=== PATIENT | male | born 1950 | race Caucasian/White ===

== ENCOUNTER 2021-07-27 06:43 | Inpatient (IN) | payer MEDICARE, OTHER ==
[~2021-07-27] VITALS: Ht 165.1 cm; Wt 69.1 kg
[2021-07-27] MEDS ORDERED: ACETAMINOPHEN 500 MG TABLET PO ONE (07:15)
[2021-07-27] MEDS ORDERED: MethylPREDNISolone SOD SUCC 125 MG/2 ML VIAL IVP ONE (07:15)
[2021-07-27] MEDS ORDERED: ALBUTEROL SULFATE 5 MG/ML 20 ML NEB SOLN [BULK] NEB ONE (07:15)
[2021-07-27] MEDS ORDERED: IPRATROPIUM BROMIDE 0.5 MG/2.5 ML NEB SOLUTION NEB ONE (07:15)
[2021-07-27] MEDS ORDERED: CALC-1085 PO (07:19)
[2021-07-27] MEDS ORDERED: ASPI-1450 PO (07:19)
[2021-07-27] MEDS ORDERED: TIOT4MIS3 PUFF (07:19)
[2021-07-27] MEDS ORDERED: FAMO20 PO (07:19)
[2021-07-27] MEDS ORDERED: LOSA50TA37 PO (07:19)
[2021-07-27] MEDS ORDERED: ROFL500T PO (07:19)
[2021-07-27] MEDS ORDERED: NAPR-1197 PO (07:19)
[2021-07-27] MEDS ORDERED: ATOR40TA28 PO (07:19)
[2021-07-27] MEDS ORDERED: FOLI-130 PO (07:19)
[2021-07-27] MEDS ORDERED: BACL10TA PO (07:19)
[2021-07-27 07:42] LABS: BASOPHILS % (AUTO) 0.2 % (0.0-2.0); EOSINOPHILS % (AUTO) 0 % (1.0-6.0); HEMATOCRIT 27.7 % (41-53); HEMOGLOBIN 8.9 g/dL (13.5-17.5); LYMPHOCYTES # (AUTO) 0.3 K/uL (1.0-4.8); LYMPHOCYTES % (AUTO) 4.8 % (22.0-44.0); MEAN CORPUSCULAR HEMOGLOBIN 28.2 pg (26.0-34.0); MEAN CORPUSCULAR HGB CONC 32.2 G/dL (31.0-37.0); MEAN CORPUSCULAR VOLUME 88 fL (80-100); MONOCYTES # (AUTO) 0.8 K/uL (0.1-1.0); NEUTROPHILS # (AUTO) 5.3 K/uL (1.8-7.7); PLATELET COUNT (AUTO) 678 K/uL (150-450); RED BLOOD CELL COUNT(AUTO) 3.17 MIL/uL (4.50-5.90); RED CELL DISTRIBUTION WIDTH 19.6 % (11.5-14.5)
[2021-07-27] MEDS ORDERED: AZITHROMYCIN 500 MG/NS 250 ML IV ONE (07:45)
[2021-07-27] MEDS ORDERED: CefTRIAXone 1 GM/DEXTROSE 50 ML IV ONE (07:45)
[2021-07-27] MEDS ORDERED: 0.9% SODIUM CHLORIDE 5 ML NEB SOLUTION NEB ONE (07:50)
[2021-07-27 07:52] LABS: ANION GAP 12 mmol/L (8-16); CARBON DIOXIDE 26 mmol/L (22-29); CHLORIDE 102 mmol/L (98-107); CREATININE 0.78 mg/dL (0.60-1.30); GLOMERULAR FILTR. RATE CALC > 60 mL/min (>60); GLUCOSE,RANDOM 146 mg/dL (70-110); POTASSIUM 3.6 mmol/L (3.5-5.1); SODIUM SERUM 140 mmol/L (136-145); UREA NITROGEN, BLOOD 12 mg/dL (7-18)
[2021-07-27 07:58] LABS: ALANINE AMINOTRANSFERASE 24 U/L (12-78); ALBUMIN 2.8 g/dL (3.4-5.0); ALKALINE PHOSPHATASE 102 U/L (46-116); ASPARTATE AMINOTRANSFERASE 29 U/L (15-37); BILIRUBIN,TOTAL 0.3 mg/dL (0.1-1.0); TOTAL PROTEIN, SERUM 7.2 g/dL (6.4-8.2)
[2021-07-27 07:59] LABS: B-TYPE NATRIURETIC PEPTIDE 225 pg/mL (0-100)
[2021-07-27] MEDS ORDERED: ONDANSETRON HCL 4 MG/2 ML VIAL IVP PRN ×2 (08:15→09:45)
[2021-07-27] MEDS ORDERED: ACETAMINOPHEN 325 MG TABLET PO PRN (08:15)
[2021-07-27] MEDS ORDERED: SODIUM CHLORIDE 0.9% 1,000 ML IV ONE (08:15)
[2021-07-27 08:51] LABS: COVID AG,FIA SOURCE NASOPHARYNGEAL
[2021-07-27] MEDS ORDERED: *CLINICAL-CEFEPIME DOSING CLINICAL ONE (09:15)
[2021-07-27] MEDS ORDERED: IPRATROPIUM BROMIDE 0.5 MG/2.5 ML NEB SOLUTION NEB PRN (09:30)
[2021-07-27] MEDS ORDERED: BISACODYL 10 MG RECTAL RECTAL SUPPOSITORY PR PRN (09:45)
[2021-07-27] MEDS ORDERED: 0.9% SODIUM CHLORIDE 10 ML SYRINGE IVP PRN (09:45)
[2021-07-27] MEDS ORDERED: MAGNESIUM HYDROXIDE SUSPENSION 30 ML UDCUP PO PRN (09:45)
[2021-07-27] MEDS: PANTOPRAZOLE SODIUM 40 MG/VIAL IVP SCH (10:14)
[2021-07-27] MEDS ORDERED: IPRATROPIUM BROMIDE 0.5 MG/2.5 ML NEB SOLUTION NEB SCH (11:00)
[2021-07-27] MEDS ORDERED: ALBUTEROL SULFATE 2.5 MG/0.5 ML NEB SOLUTION NEB SCH (11:00)
[2021-07-27] MEDS ORDERED: NAPR275T96 PO (11:28)
[2021-07-27 12:20] VITALS: BP 140/70
[2021-07-27] MEDS: ALBUTEROL SULFATE 2.5 MG/0.5 ML NEB SOLUTION NEB PRN (12:37)
[2021-07-27 12:55] LABS: ABG A-A DIFF O2 87.6 mmHg (10-20.0); ABG BASE EXCESS -4.4 mmol/L (-2.0-3.0); ABG CARBOXYHEMOGLOBIN 0.1 % (0.0-1.5); ABG HCO3 21.4 mmol/L (22.0-26.0); ABG OXYGEN CONTENT 13.3 mL/dL (15.0-23.0); ABG OXYHEMOGLOBIN 99.9 % (94.0-100.0); ABG PCO2 30 mmHg (35-45); ABG PH 7.439 (7.35-7.450); ABG TOTAL HEMOGLOBIN 8.9 G/dL (12.0-18.0); PO2, ARTERIAL BG 307.9 mmHg (79.0-87.0); SOURCE, BLOOD GAS ARTERIAL
[2021-07-27] MEDS: MethylPREDNISolone SOD SUCC 125 MG/2 ML VIAL IVP SCH ×2 (13:00→17:28)
[2021-07-27] MEDS ORDERED: POTASSIUM CHLORIDE 20 MEQ ER TABLET PO PRN ×2 (13:45)
[2021-07-27] MEDS ORDERED: POTASSIUM CHLORIDE 10% 40 MEQ/30 ML LIQUID UDCUP PO PRN ×2 (13:45)
[2021-07-27 16:00] VITALS: BP 147/76
[2021-07-27] MEDS: HEPARIN SODIUM,PORCINE 5,000 UNITS/ML VIAL SQ SCH (16:10)
[2021-07-27 16:21] LABS: SITE, BLOOD GAS RT RADIAL
[2021-07-27 16:22] LABS: O2 DEVICE,BLOOD GAS BIPAP (ROOM AIR); SPONTANEOUS VT, BG 504 ml
[2021-07-27] MEDS ORDERED: SODIUM CHLORIDE 0.9% 250 ML IV ONE (17:25)
[2021-07-27] MEDS: CefTRIAXone SODIUM 2 GM in DEXTROSE 5%-WATER 50 ML IV SCH (17:28)
[2021-07-27 20:00] VITALS: BP 146/73
[2021-07-27 20:23] LABS: APPEARANCE,URINE CLEAR (CLEAR); GLUCOSE, URINE (UA) 250 mg/dL (NEGATIVE); KETONES,URINE NEGATIVE (NEGATIVE); LEUKOCYTE ESTERASE ,URINE NEGATIVE (NEGATIVE); NITRATE,URINE NEGATIVE (NEGATIVE); OCCULT BLOOD,URINE TRACE (NEGATIVE); PROTEIN,URINE TRACE (NEGATIVE); UROBILINOGEN,URINE 0.2 mg/dL (<=1.0)
[2021-07-27 20:26] LABS: BILIRUBIN,URINE PRELIM. POSITIVE (NEGATIVE)
[2021-07-27 20:45] LABS: BACTERIA,URINE None Seen /HPF (None Seen); RBC,URINE 0-2 /HPF (0-2); WBC,URINE 0-2 /HPF (0-5)
[2021-07-27] MEDS: LACTOBACILLUS ACIDOPHILUS/BULGARICUS TABLET PO SCH (21:00)
[2021-07-27] MEDS: CALCIUM CIT/VITAMIN D3 200 MG-250 UNITS TABLET PO SCH (21:00)
[2021-07-27] MEDS ORDERED: DOXYCYCLINE HYCLATE 100 MG in DEXTROSE 5%-WATER 100 ML IV SCH (21:00)
[2021-07-28] VITALS: BP 161/88
[2021-07-28] MEDS: HEPARIN SODIUM,PORCINE 5,000 UNITS/ML VIAL SQ SCH ×3 (01:09→16:09)
[2021-07-28] MEDS: MethylPREDNISolone SOD SUCC 125 MG/2 ML VIAL IVP SCH ×4 (01:09→18:19)
[2021-07-28 04:00] VITALS: BP 161/85
[2021-07-28 04:33] LABS: BASOPHILS % (AUTO) 0.1 % (0.0-2.0); EOSINOPHILS % (AUTO) 0 % (1.0-6.0); HEMATOCRIT 25.2 % (41-53); HEMOGLOBIN 8.4 g/dL (13.5-17.5); LYMPHOCYTES # (AUTO) 0.2 K/uL (1.0-4.8); LYMPHOCYTES % (AUTO) 1.8 % (22.0-44.0); MEAN CORPUSCULAR HGB CONC 33.5 G/dL (31.0-37.0); MEAN CORPUSCULAR VOLUME 87 fL (80-100); MONOCYTES # (AUTO) 0.4 K/uL (0.1-1.0); MONOCYTES % (AUTO) 4.5 % (2.0-9.0); NEUTROPHILS # (AUTO) 7.9 K/uL (1.8-7.7); PLATELET COUNT (AUTO) 662 K/uL (150-450); RED BLOOD CELL COUNT(AUTO) 2.91 MIL/uL (4.50-5.90); RED CELL DISTRIBUTION WIDTH 19.6 % (11.5-14.5)
[2021-07-28 04:54] LABS: NEUTROPHILS % (AUTO) 93.6 % (40.0-70.0)
[2021-07-28 05:08] LABS: % IRON SATURATION 14.2 % (30-44); IRON, SERUM 33 mcg/dL (50-175); TOTAL IRON BINDING CAPACITY 231 mcg/dL (250-450)
[2021-07-28 05:18] LABS: ALANINE AMINOTRANSFERASE 47 U/L (12-78); ALBUMIN 2.5 g/dL (3.4-5.0); ALKALINE PHOSPHATASE 94 U/L (46-116); ANION GAP 12 mmol/L (8-16); ASPARTATE AMINOTRANSFERASE 70 U/L (15-37); BILIRUBIN,TOTAL 0.3 mg/dL (0.1-1.0); CALCIUM, TOTAL 8.4 mg/dL (8.8-10.5); CARBON DIOXIDE 27 mmol/L (22-29); CHLORIDE 103 mmol/L (98-107); CHOLESTEROL 158 mg/dL (131-200); CREATININE 0.64 mg/dL (0.60-1.30); GLOMERULAR FILTR. RATE CALC > 60 mL/min (>60); GLUCOSE,RANDOM 151 mg/dL (70-110); HDL CHOLESTEROL 52 mg/dL (40-60); LDL CHOL (CALC.) 90 mg/dL (0-130); POTASSIUM 3.3 mmol/L (3.5-5.1); SODIUM SERUM 142 mmol/L (136-145); TOTAL PROTEIN, SERUM 6.6 g/dL (6.4-8.2); TRIGLYCERIDES 80 mg/dL (15-150); UREA NITROGEN, BLOOD 13 mg/dL (7-18)
[2021-07-28 06:50] LABS: FERRITIN 1653 ng/mL (26-388)
[2021-07-28 08:00] VITALS: BP 168/93
[2021-07-28] MEDS: DOXYCYCLINE HYCLATE 100 MG in DEXTROSE 5%-WATER 100 ML IV SCH ×2 (08:03→22:42)
[2021-07-28] MEDS: ASPIRIN 81 MG CHEWABLE TABLET PO SCH (08:03)
[2021-07-28] MEDS: PANTOPRAZOLE SODIUM 40 MG/VIAL IVP SCH (08:03)
[2021-07-28] MEDS: CALCIUM CIT/VITAMIN D3 200 MG-250 UNITS TABLET PO SCH ×2 (08:04→22:41)
[2021-07-28] MEDS: LACTOBACILLUS ACIDOPHILUS/BULGARICUS TABLET PO SCH ×2 (08:04→22:41)
[2021-07-28] MEDS: FOLIC ACID 1 MG TABLET PO SCH (08:04)
[2021-07-28] MEDS: LOSARTAN POTASSIUM 50 MG TABLET PO SCH (08:04)
[2021-07-28] MEDS: ATORVASTATIN CALCIUM 40 MG TABLET PO SCH (08:05)
[2021-07-28 12:00] VITALS: BP 150/78
[2021-07-28 16:00] VITALS: BP 155/79
[2021-07-28] MEDS ORDERED: SODIUM CHLORIDE 0.9% 250 ML IV ONE (18:18)
[2021-07-28] MEDS: CefTRIAXone SODIUM 2 GM in DEXTROSE 5%-WATER 50 ML IV SCH (18:19)
[2021-07-28 20:00] VITALS: BP 164/86
[2021-07-28] MEDS: ACETAMINOPHEN 325 MG TABLET PO PRN (22:42)
[2021-07-29] VITALS (8 sets, daily range): BP systolic 111–167; BP diastolic 62–90
[2021-07-29] MEDS: MethylPREDNISolone SOD SUCC 125 MG/2 ML VIAL IVP SCH ×5 (00:59→18:00)
[2021-07-29] MEDS: HEPARIN SODIUM,PORCINE 5,000 UNITS/ML VIAL SQ SCH ×4 (01:01→15:56)
[2021-07-29 04:54] LABS: EOSINOPHILS % (AUTO) 0 % (1.0-6.0); HEMATOCRIT 28.2 % (41-53); HEMOGLOBIN 9.3 g/dL (13.5-17.5); LYMPHOCYTES # (AUTO) 0.1 K/uL (1.0-4.8); LYMPHOCYTES % (AUTO) 1.3 % (22.0-44.0); MEAN CORPUSCULAR HEMOGLOBIN 28.6 pg (26.0-34.0); MEAN CORPUSCULAR VOLUME 87 fL (80-100); MONOCYTES # (AUTO) 0.1 K/uL (0.1-1.0); MONOCYTES % (AUTO) 1.3 % (2.0-9.0); NEUTROPHILS # (AUTO) 7.4 K/uL (1.8-7.7); RED BLOOD CELL COUNT(AUTO) 3.24 MIL/uL (4.50-5.90)
[2021-07-29 04:57] LABS: NEUTROPHILS % (AUTO) 97.4 % (40.0-70.0)
[2021-07-29 04:59] LABS: PLATELET COUNT (AUTO) 786 K/uL (150-450)
[2021-07-29 05:02] LABS: ALANINE AMINOTRANSFERASE 52 U/L (12-78); ALBUMIN 2.4 g/dL (3.4-5.0); ALKALINE PHOSPHATASE 95 U/L (46-116); ANION GAP 9 mmol/L (8-16); ASPARTATE AMINOTRANSFERASE 56 U/L (15-37); BILIRUBIN,TOTAL 0.3 mg/dL (0.1-1.0); CALCIUM, TOTAL 8.8 mg/dL (8.8-10.5); CARBON DIOXIDE 29 mmol/L (22-29); CHLORIDE 103 mmol/L (98-107); CREATININE 0.68 mg/dL (0.60-1.30); GLOMERULAR FILTR. RATE CALC > 60 mL/min (>60); GLUCOSE,RANDOM 142 mg/dL (70-110); SODIUM SERUM 141 mmol/L (136-145); TOTAL PROTEIN, SERUM 6.5 g/dL (6.4-8.2); UREA NITROGEN, BLOOD 18 mg/dL (7-18)
[2021-07-29 05:41] LABS: PLATELET MORPHOLOGY COMMENT GIANT PLTS PRESENT
[2021-07-29 08:30] LABS: FREE T4 (FREE THYROXINE) 1.55 ng/dL (0.76-1.46); THYROID STIMULATING HORMONE 0.24 uIU/mL (0.36-3.74)
[2021-07-29] MEDS: DOXYCYCLINE HYCLATE 100 MG in DEXTROSE 5%-WATER 100 ML IV SCH ×2 (09:29→21:09)
[2021-07-29] MEDS: PANTOPRAZOLE SODIUM 40 MG/VIAL IVP SCH (09:29)
[2021-07-29] MEDS: ASPIRIN 81 MG CHEWABLE TABLET PO SCH (09:30)
[2021-07-29] MEDS: CALCIUM CIT/VITAMIN D3 200 MG-250 UNITS TABLET PO SCH ×2 (09:30→21:08)
[2021-07-29] MEDS: LOSARTAN POTASSIUM 50 MG TABLET PO SCH (09:31)
[2021-07-29] MEDS: LACTOBACILLUS ACIDOPHILUS/BULGARICUS TABLET PO SCH ×2 (09:31→21:08)
[2021-07-29] MEDS: FOLIC ACID 1 MG TABLET PO SCH (09:31)
[2021-07-29] MEDS: ATORVASTATIN CALCIUM 40 MG TABLET PO SCH (09:32)
[2021-07-29] MEDS: AmLODIPine BESYLATE 2.5 MG TABLET PO SCH (10:58)
[2021-07-29] MEDS ORDERED: IOHEXOL 350 MG/ML 75 ML VIAL ONE (14:10)
[2021-07-29] MEDS ORDERED: SODIUM CHLORIDE 0.9% 100 ML ONE (14:10)
[2021-07-29] MEDS ORDERED: SODIUM CHLORIDE 0.9% 250 ML IV ONE (15:31)
[2021-07-29] MEDS: CefTRIAXone SODIUM 2 GM in DEXTROSE 5%-WATER 50 ML IV SCH (17:27)
[2021-07-30] VITALS (9 sets, daily range): BP systolic 114–166; BP diastolic 40–96
[2021-07-30] MEDS: MethylPREDNISolone SOD SUCC 125 MG/2 ML VIAL IVP SCH ×4 (05:20→18:14)
[2021-07-30] MEDS: HEPARIN SODIUM,PORCINE 5,000 UNITS/ML VIAL SQ SCH ×3 (05:20→16:42)
[2021-07-30 05:49] LABS: ALANINE AMINOTRANSFERASE 48 U/L (12-78); ALBUMIN 2.4 g/dL (3.4-5.0); ALKALINE PHOSPHATASE 87 U/L (46-116); ANION GAP 5 mmol/L (8-16); ASPARTATE AMINOTRANSFERASE 52 U/L (15-37); BILIRUBIN,TOTAL 0.3 mg/dL (0.1-1.0); CALCIUM, TOTAL 8.9 mg/dL (8.8-10.5); CARBON DIOXIDE 32 mmol/L (22-29); CHLORIDE 104 mmol/L (98-107); CREATININE 0.68 mg/dL (0.60-1.30); GLOMERULAR FILTR. RATE CALC > 60 mL/min (>60); GLUCOSE,RANDOM 120 mg/dL (70-110); POTASSIUM 4.1 mmol/L (3.5-5.1); SODIUM SERUM 141 mmol/L (136-145); TOTAL PROTEIN, SERUM 6.3 g/dL (6.4-8.2); UREA NITROGEN, BLOOD 25 mg/dL (7-18)
[2021-07-30 06:39] LABS: EOSINOPHILS % (AUTO) 0.4 % (1.0-6.0)
[2021-07-30 06:44] LABS: BASOPHILS % (AUTO) 0.6 % (0.0-2.0); HEMATOCRIT 26.3 % (41-53); HEMOGLOBIN 8.6 g/dL (13.5-17.5); LYMPHOCYTES # (AUTO) 0.3 K/uL (1.0-4.8); LYMPHOCYTES % (AUTO) 3.3 % (22.0-44.0); MEAN CORPUSCULAR HEMOGLOBIN 28.8 pg (26.0-34.0); MEAN CORPUSCULAR HGB CONC 32.8 G/dL (31.0-37.0); MEAN CORPUSCULAR VOLUME 88 fL (80-100); MONOCYTES # (AUTO) 0.1 K/uL (0.1-1.0); MONOCYTES % (AUTO) 0.7 % (2.0-9.0); NEUTROPHILS # (AUTO) 7.4 K/uL (1.8-7.7)
[2021-07-30 07:10] LABS: PLATELET COUNT (AUTO) 781 K/uL (150-450)
[2021-07-30] MEDS: DOXYCYCLINE HYCLATE 100 MG in DEXTROSE 5%-WATER 100 ML IV SCH ×2 (08:17→21:19)
[2021-07-30] MEDS: LOSARTAN POTASSIUM 50 MG TABLET PO SCH (08:18)
[2021-07-30] MEDS: FOLIC ACID 1 MG TABLET PO SCH (08:18)
[2021-07-30] MEDS: ATORVASTATIN CALCIUM 40 MG TABLET PO SCH (08:18)
[2021-07-30] MEDS: DOCUSATE SODIUM 100 MG CAPSULE PO PRN (08:18)
[2021-07-30] MEDS: ASPIRIN 81 MG CHEWABLE TABLET PO SCH (08:18)
[2021-07-30] MEDS: PANTOPRAZOLE SODIUM 40 MG/VIAL IVP SCH (08:18)
[2021-07-30] MEDS: LACTOBACILLUS ACIDOPHILUS/BULGARICUS TABLET PO SCH ×2 (08:19→21:19)
[2021-07-30] MEDS: CALCIUM CIT/VITAMIN D3 200 MG-250 UNITS TABLET PO SCH ×2 (08:19→21:19)
[2021-07-30] MEDS: AmLODIPine BESYLATE 2.5 MG TABLET PO SCH (08:19)
[2021-07-30] MEDS: CefTRIAXone SODIUM 2 GM in DEXTROSE 5%-WATER 50 ML IV SCH (18:15)
[2021-07-31] VITALS: BP 101/83
[2021-07-31] MEDS: MethylPREDNISolone SOD SUCC 125 MG/2 ML VIAL IVP SCH ×5 (01:17→18:09)
[2021-07-31] MEDS: HEPARIN SODIUM,PORCINE 5,000 UNITS/ML VIAL SQ SCH ×3 (01:17→16:31)
[2021-07-31 04:01] VITALS: BP 131/73
[2021-07-31 05:11] LABS: BASOPHILS % (AUTO) 0.2 % (0.0-2.0); EOSINOPHILS % (AUTO) 0 % (1.0-6.0); LYMPHOCYTES # (AUTO) 0.2 K/uL (1.0-4.8); LYMPHOCYTES % (AUTO) 4.4 % (22.0-44.0); MEAN CORPUSCULAR HEMOGLOBIN 28.9 pg (26.0-34.0); MEAN CORPUSCULAR HGB CONC 33.2 G/dL (31.0-37.0); MEAN CORPUSCULAR VOLUME 87 fL (80-100); MONOCYTES % (AUTO) 0.2 % (2.0-9.0); NEUTROPHILS # (AUTO) 3.9 K/uL (1.8-7.7); PLATELET COUNT (AUTO) 629 K/uL (150-450); RED BLOOD CELL COUNT(AUTO) 3.11 MIL/uL (4.50-5.90); RED CELL DISTRIBUTION WIDTH 19.4 % (11.5-14.5)
[2021-07-31 05:21] LABS: NEUTROPHILS % (AUTO) 95.2 % (40.0-70.0)
[2021-07-31 05:25] LABS: ALANINE AMINOTRANSFERASE 47 U/L (12-78); ALBUMIN 2.3 g/dL (3.4-5.0); ALKALINE PHOSPHATASE 79 U/L (46-116); ANION GAP 9 mmol/L (8-16); ASPARTATE AMINOTRANSFERASE 40 U/L (15-37); BILIRUBIN,TOTAL 0.3 mg/dL (0.1-1.0); CALCIUM, TOTAL 8.6 mg/dL (8.8-10.5); CARBON DIOXIDE 33 mmol/L (22-29); CHLORIDE 104 mmol/L (98-107); CREATININE 0.53 mg/dL (0.60-1.30); GLOMERULAR FILTR. RATE CALC > 60 mL/min (>60); GLUCOSE,RANDOM 130 mg/dL (70-110); POTASSIUM 3.7 mmol/L (3.5-5.1); SODIUM SERUM 146 mmol/L (136-145); TOTAL PROTEIN, SERUM 5.9 g/dL (6.4-8.2); UREA NITROGEN, BLOOD 25 mg/dL (7-18)
[2021-07-31 08:00] VITALS: BP 147/82
[2021-07-31] MEDS ORDERED: MAGNESIUM SULFATE 4 GM/WATER 100 ML IV PRN (08:15)
[2021-07-31] MEDS ORDERED: MAGNESIUM SULFATE 2 GM/WATER 50 ML IV PRN (08:15)
[2021-07-31] MEDS ORDERED: MAGNESIUM OXIDE 400 MG TABLET PO PRN (08:15)
[2021-07-31] MEDS: LOSARTAN POTASSIUM 50 MG TABLET PO SCH (08:42)
[2021-07-31] MEDS: CALCIUM CIT/VITAMIN D3 200 MG-250 UNITS TABLET PO SCH ×2 (08:42→20:55)
[2021-07-31] MEDS: FOLIC ACID 1 MG TABLET PO SCH (08:42)
[2021-07-31] MEDS: PANTOPRAZOLE SODIUM 40 MG/VIAL IVP SCH (08:42)
[2021-07-31] MEDS: DOXYCYCLINE HYCLATE 100 MG in DEXTROSE 5%-WATER 100 ML IV SCH ×2 (08:42→20:55)
[2021-07-31] MEDS: ATORVASTATIN CALCIUM 40 MG TABLET PO SCH (08:43)
[2021-07-31] MEDS: LACTOBACILLUS ACIDOPHILUS/BULGARICUS TABLET PO SCH ×2 (08:43→20:55)
[2021-07-31] MEDS: DOCUSATE SODIUM 100 MG CAPSULE PO PRN (08:43)
[2021-07-31] MEDS: ASPIRIN 81 MG CHEWABLE TABLET PO SCH (08:43)
[2021-07-31] MEDS: AmLODIPine BESYLATE 2.5 MG TABLET PO SCH (08:49)
[2021-07-31] MEDS: IPRATROPIUM BROMIDE 0.5 MG/2.5 ML NEB SOLUTION NEB SCH ×4 (11:00→22:27)
[2021-07-31 12:00] VITALS: BP 146/67
[2021-07-31] MEDS: ALBUTEROL SULFATE 2.5 MG/0.5 ML NEB SOLUTION NEB SCH ×2 (14:00→20:00)
[2021-07-31 16:00] VITALS: BP 139/70
[2021-07-31] MEDS: CefTRIAXone SODIUM 2 GM in DEXTROSE 5%-WATER 50 ML IV SCH (18:09)
[2021-07-31 20:00] VITALS: BP 143/64
[2021-07-31] MEDS: ALBUTEROL SULFATE 2.5 MG/0.5 ML NEB SOLUTION NEB PRN (22:27)
[2021-08-01] VITALS (7 sets, daily range): BP systolic 120–150; BP diastolic 54–78
[2021-08-01] MEDS: MethylPREDNISolone SOD SUCC 125 MG/2 ML VIAL IVP SCH ×4 (00:06→18:06)
[2021-08-01] MEDS: HEPARIN SODIUM,PORCINE 5,000 UNITS/ML VIAL SQ SCH ×3 (00:06→15:57)
[2021-08-01] MEDS ORDERED: SODIUM CHLORIDE 0.9% 250 ML IV ONE ×3 (01:59→20:52)
[2021-08-01] MEDS: ALBUTEROL SULFATE 2.5 MG/0.5 ML NEB SOLUTION NEB SCH ×4 (02:00→20:09)
[2021-08-01] MEDS: IPRATROPIUM BROMIDE 0.5 MG/2.5 ML NEB SOLUTION NEB SCH ×5 (02:49→20:09)
[2021-08-01 05:14] LABS: ALANINE AMINOTRANSFERASE 47 U/L (12-78); ALBUMIN 2.6 g/dL (3.4-5.0); ALKALINE PHOSPHATASE 85 U/L (46-116); ANION GAP 8 mmol/L (8-16); ASPARTATE AMINOTRANSFERASE 33 U/L (15-37); BILIRUBIN,TOTAL 0.3 mg/dL (0.1-1.0); CALCIUM, TOTAL 8.9 mg/dL (8.8-10.5); CARBON DIOXIDE 32 mmol/L (22-29); CHLORIDE 105 mmol/L (98-107); CREATININE 0.65 mg/dL (0.60-1.30); GLOMERULAR FILTR. RATE CALC > 60 mL/min (>60); GLUCOSE,RANDOM 143 mg/dL (70-110); SODIUM SERUM 145 mmol/L (136-145); TOTAL PROTEIN, SERUM 6.6 g/dL (6.4-8.2); UREA NITROGEN, BLOOD 27 mg/dL (7-18)
[2021-08-01 05:16] LABS: HEMATOCRIT 29.7 % (41-53); HEMOGLOBIN 9.7 g/dL (13.5-17.5); MEAN CORPUSCULAR HEMOGLOBIN 28.8 pg (26.0-34.0); MEAN CORPUSCULAR HGB CONC 32.6 G/dL (31.0-37.0); MEAN CORPUSCULAR VOLUME 88 fL (80-100); PLATELET COUNT (AUTO) 579 K/uL (150-450); RED BLOOD CELL COUNT(AUTO) 3.37 MIL/uL (4.50-5.90); RED CELL DISTRIBUTION WIDTH 19.2 % (11.5-14.5)
[2021-08-01 05:21] LABS: BAND NEUTROPHILS % (MANUAL) 0 % (0-5)
[2021-08-01 05:31] LABS: LYMPHOCYTES % (MANUAL) 11 % (22-44); MONOCYTES % (MANUAL) 1 % (2-9); SEGMENTED NEUTROPHILS % 88 % (40-70)
[2021-08-01] MEDS: ASPIRIN 81 MG CHEWABLE TABLET PO SCH (08:17)
[2021-08-01] MEDS: PANTOPRAZOLE SODIUM 40 MG/VIAL IVP SCH (08:17)
[2021-08-01] MEDS: AmLODIPine BESYLATE 2.5 MG TABLET PO SCH (08:18)
[2021-08-01] MEDS: ATORVASTATIN CALCIUM 40 MG TABLET PO SCH (08:18)
[2021-08-01] MEDS: LOSARTAN POTASSIUM 50 MG TABLET PO SCH (08:18)
[2021-08-01] MEDS: CALCIUM CIT/VITAMIN D3 200 MG-250 UNITS TABLET PO SCH ×2 (08:19→20:55)
[2021-08-01] MEDS: LACTOBACILLUS ACIDOPHILUS/BULGARICUS TABLET PO SCH ×2 (08:19→20:55)
[2021-08-01] MEDS: FOLIC ACID 1 MG TABLET PO SCH (08:19)
[2021-08-01] MEDS: DOXYCYCLINE HYCLATE 100 MG in DEXTROSE 5%-WATER 100 ML IV SCH ×2 (09:06→21:13)
[2021-08-01] MEDS: ALBUTEROL SULFATE 2.5 MG/0.5 ML NEB SOLUTION NEB PRN (11:25)
[2021-08-01] MEDS: CefTRIAXone SODIUM 2 GM in DEXTROSE 5%-WATER 50 ML IV SCH (18:07)
[2021-08-02] MEDS: MethylPREDNISolone SOD SUCC 125 MG/2 ML VIAL IVP SCH ×2 (00:24→06:07)
[2021-08-02] MEDS: HEPARIN SODIUM,PORCINE 5,000 UNITS/ML VIAL SQ SCH ×4 (00:24→23:12)
[2021-08-02 03:34] VITALS: BP 126/72
[2021-08-02] MEDS: ALBUTEROL SULFATE 2.5 MG/0.5 ML NEB SOLUTION NEB SCH ×4 (03:39→19:43)
[2021-08-02] MEDS: IPRATROPIUM BROMIDE 0.5 MG/2.5 ML NEB SOLUTION NEB SCH ×4 (03:39→19:43)
[2021-08-02 06:29] LABS: ANION GAP 12 mmol/L (8-16); CALCIUM, TOTAL 8.9 mg/dL (8.8-10.5); CARBON DIOXIDE 33 mmol/L (22-29); CHLORIDE 104 mmol/L (98-107); CREATININE 0.51 mg/dL (0.60-1.30); GLOMERULAR FILTR. RATE CALC > 60 mL/min (>60); GLUCOSE,RANDOM 152 mg/dL (70-110); SODIUM SERUM 149 mmol/L (136-145); UREA NITROGEN, BLOOD 23 mg/dL (7-18)
[2021-08-02 07:04] LABS: HEMATOCRIT 27.3 % (41-53); HEMOGLOBIN 8.6 g/dL (13.5-17.5); MEAN CORPUSCULAR HEMOGLOBIN 27.8 pg (26.0-34.0); MEAN CORPUSCULAR HGB CONC 31.5 G/dL (31.0-37.0); MEAN CORPUSCULAR VOLUME 88 fL (80-100); PLATELET COUNT (AUTO) 383 K/uL (150-450); RED BLOOD CELL COUNT(AUTO) 3.09 MIL/uL (4.50-5.90)
[2021-08-02] MEDS: PANTOPRAZOLE SODIUM 40 MG/VIAL IVP SCH (09:19)
[2021-08-02] MEDS: LOSARTAN POTASSIUM 50 MG TABLET PO SCH (09:19)
[2021-08-02] MEDS: ASPIRIN 81 MG CHEWABLE TABLET PO SCH (09:19)
[2021-08-02] MEDS: ATORVASTATIN CALCIUM 40 MG TABLET PO SCH (09:19)
[2021-08-02] MEDS: FOLIC ACID 1 MG TABLET PO SCH (09:19)
[2021-08-02] MEDS: DOXYCYCLINE HYCLATE 100 MG in DEXTROSE 5%-WATER 100 ML IV SCH ×2 (09:20→20:27)
[2021-08-02 09:26] VITALS: BP 138/66
[2021-08-02] MEDS ORDERED: DEXTROSE 5%-WATER 1,000 ML IV ONE (09:45)
[2021-08-02] MEDS: CALCIUM CIT/VITAMIN D3 200 MG-250 UNITS TABLET PO SCH ×2 (10:38→20:28)
[2021-08-02] MEDS: AmLODIPine BESYLATE 2.5 MG TABLET PO SCH (10:38)
[2021-08-02] MEDS: LACTOBACILLUS ACIDOPHILUS/BULGARICUS TABLET PO SCH ×2 (10:39→20:27)
[2021-08-02] MEDS: MethylPREDNISolone SOD SUCC 40 MG/ML VIAL IVP SCH ×3 (11:47→23:12)
[2021-08-02 12:17] VITALS: BP 131/60
[2021-08-02 13:51] LABS: PATHOLOGY REVIEW, DIFF YES
[2021-08-02 13:52] LABS: BAND NEUTROPHILS % (MANUAL) 3 % (0-5); BUFFY COAT SMEAR PREP YES (NOT DONE); LYMPHOCYTES % (MANUAL) 15 % (22-44); MONOCYTES % (MANUAL) 6 % (2-9); SEGMENTED NEUTROPHILS % 76 % (40-70)
[2021-08-02 16:54] VITALS: BP 139/79
[2021-08-02] MEDS: CefTRIAXone SODIUM 2 GM in DEXTROSE 5%-WATER 50 ML IV SCH (17:32)
[2021-08-02 20:02] VITALS: BP 135/75
[2021-08-03 00:04] VITALS: BP 126/62
[2021-08-03] MEDS: ACETAMINOPHEN 325 MG TABLET PO PRN (00:27)
[2021-08-03] MEDS: IPRATROPIUM BROMIDE 0.5 MG/2.5 ML NEB SOLUTION NEB SCH ×2 (02:39→08:08)
[2021-08-03] MEDS: ALBUTEROL SULFATE 2.5 MG/0.5 ML NEB SOLUTION NEB SCH ×2 (02:39→08:08)
[2021-08-03 04:03] VITALS: BP 144/67
[2021-08-03] MEDS: MethylPREDNISolone SOD SUCC 40 MG/ML VIAL IVP SCH ×2 (05:07→11:45)
[2021-08-03 06:39] LABS: HEMATOCRIT 28.9 % (41-53); HEMOGLOBIN 9.5 g/dL (13.5-17.5); MEAN CORPUSCULAR HEMOGLOBIN 28.5 pg (26.0-34.0); MEAN CORPUSCULAR VOLUME 87 fL (80-100); PLATELET COUNT (AUTO) 398 K/uL (150-450); RED BLOOD CELL COUNT(AUTO) 3.33 MIL/uL (4.50-5.90); RED CELL DISTRIBUTION WIDTH 19.3 % (11.5-14.5)
[2021-08-03 07:06] LABS: ANION GAP 6 mmol/L (8-16); CALCIUM, TOTAL 8.9 mg/dL (8.8-10.5); CARBON DIOXIDE 33 mmol/L (22-29); CHLORIDE 99 mmol/L (98-107); CREATININE 0.64 mg/dL (0.60-1.30); GLOMERULAR FILTR. RATE CALC > 60 mL/min (>60); GLUCOSE,RANDOM 116 mg/dL (70-110); POTASSIUM 3.7 mmol/L (3.5-5.1); SODIUM SERUM 138 mmol/L (136-145); UREA NITROGEN, BLOOD 17 mg/dL (7-18)
[2021-08-03 07:26] LABS: BAND NEUTROPHILS % (MANUAL) 4 % (0-5); LYMPHOCYTES % (MANUAL) 10 % (22-44); MONOCYTES % (MANUAL) 15 % (2-9); SEGMENTED NEUTROPHILS % 71 % (40-70)
[2021-08-03 07:28] VITALS: BP 120/70
[2021-08-03] MEDS: HEPARIN SODIUM,PORCINE 5,000 UNITS/ML VIAL SQ SCH (08:42)
[2021-08-03] MEDS: CALCIUM CIT/VITAMIN D3 200 MG-250 UNITS TABLET PO SCH (08:43)
[2021-08-03] MEDS: PANTOPRAZOLE SODIUM 40 MG/VIAL IVP SCH (08:43)
[2021-08-03] MEDS: ASPIRIN 81 MG CHEWABLE TABLET PO SCH (08:44)
[2021-08-03] MEDS: LOSARTAN POTASSIUM 50 MG TABLET PO SCH (08:44)
[2021-08-03] MEDS: LACTOBACILLUS ACIDOPHILUS/BULGARICUS TABLET PO SCH (08:44)
[2021-08-03] MEDS: AmLODIPine BESYLATE 2.5 MG TABLET PO SCH (08:45)
[2021-08-03] MEDS: FOLIC ACID 1 MG TABLET PO SCH (08:45)
[2021-08-03] MEDS: ATORVASTATIN CALCIUM 40 MG TABLET PO SCH (08:46)
[2021-08-03] MEDS: DOXYCYCLINE HYCLATE 100 MG in DEXTROSE 5%-WATER 100 ML IV SCH (09:00)
[2021-08-03 11:55] VITALS: BP 112/76
[2021-08-03] MEDS ORDERED: DOXY-354 PO (13:59)
[2021-08-03] MEDS ORDERED: AMOX1TAB16 PO (14:01)
[2021-08-03] MEDS ORDERED: PRED10 PO (14:05)
[2021-08-03] MEDS ORDERED: ALBU8HFA IH (14:05)
== END 2021-08-03 15:15 | disposition home or self-care (01) | DRG 189 ==
LOC: EMS 06:44 → ICU 11:28 → 5S 08-01 19:00
PROVIDERS: ADMIT Internal Medicine; ATTEND Internal Medicine
PROC: 5A09357 Assistance with Respiratory Ventilation, Less than 24 Consecutive Hours, Continuous Positive Airway Pressure (ICD-10-PCS; principal; 2021-07-28)
DX: J96.21 Acute and chronic respiratory failure with hypoxia (principal); G93.41 Metabolic encephalopathy; J90 Pleural effusion, not elsewhere classified; E87.0 Hyperosmolality and hypernatremia; J43.9 Emphysema, unspecified; D64.9 Anemia, unspecified; I10 Essential (primary) hypertension; I27.20 Pulmonary hypertension, unspecified; R73.9 Hyperglycemia, unspecified; T38.0X5A Adverse effect of glucocorticoids and synthetic analogues, initial encounter; Z20.822 Contact with and (suspected) exposure to COVID-19; D72.819 Decreased white blood cell count, unspecified; Z85.118 Personal history of other malignant neoplasm of bronchus and lung; Z87.891 Personal history of nicotine dependence; Z99.81 Dependence on supplemental oxygen; Y92.89 Other specified places as the place of occurrence of the external cause
CPT/HCPCS: 36600; 70450; 70460; 71045; 71250; 80048; 80053; 80061; 81001; 82040; 82728; 82805; 83540; 83550; 83735; 83880; 84132; 84145; 84439; 84443; 84484; 85009; 85025; 87040; 87081; 92610; 93005; 93306; 94640; 94660; 97110; 97116; 97162; 97166; 97530; 97535; 99291; C9113; G0378; J0456; J0696; J1644; J2920; J2930; J3490; J7030; J7050; J7060; Q9967; 36415-L1; 36415-TC; J7611; J7613; U0003

== ENCOUNTER 2021-08-31 02:10 | Inpatient (IN) | payer MEDICARE, OTHER ==
[~2021-08-31] VITALS: Ht 177.8 cm; Wt 68.1 kg
[~2021-08-31 02:10] MED LIST: ALBU8HFA IH; AMOX1TAB16 PO; ASPI-1450 PO; ATOR40TA28 PO; BACL10TA PO; CALC-1085 PO; DOXY-354 PO; FAMO20 PO; FOLI-130 PO; LOSA50TA37 PO; NAPR275T96 PO; PRED10 PO; ROFL500T PO; TIOT4MIS3 PUFF
[2021-08-31] MEDS ORDERED: IOHEXOL 350 MG/ML 100 ML VIAL ONE (02:33)
[2021-08-31] MEDS ORDERED: SODIUM CHLORIDE 0.9% 100 ML ONE (02:34)
[2021-08-31 03:32] LABS: BASOPHILS % (AUTO) 0.2 % (0.0-2.0); EOSINOPHILS % (AUTO) 0.1 % (1.0-6.0); HEMATOCRIT 24.8 % (41-53); HEMOGLOBIN 8.2 g/dL (13.5-17.5); LYMPHOCYTES # (AUTO) 0.4 K/uL (1.0-4.8); MEAN CORPUSCULAR HEMOGLOBIN 30.6 pg (26.0-34.0); MEAN CORPUSCULAR VOLUME 93 fL (80-100); MONOCYTES # (AUTO) 1.2 K/uL (0.1-1.0); MONOCYTES % (AUTO) 11.8 % (2.0-9.0); NEUTROPHILS # (AUTO) 8.8 K/uL (1.8-7.7); NEUTROPHILS % (AUTO) 83.9 % (40.0-70.0); PLATELET COUNT (AUTO) 297 K/uL (150-450); RED BLOOD CELL COUNT(AUTO) 2.67 MIL/uL (4.50-5.90); RED CELL DISTRIBUTION WIDTH 20.8 % (11.5-14.5)
[2021-08-31 03:36] LABS: ANION GAP 8 mmol/L (8-16); CALCIUM, TOTAL 8.8 mg/dL (8.8-10.5); CARBON DIOXIDE 30 mmol/L (22-29); CHLORIDE 99 mmol/L (98-107); CREATININE 0.69 mg/dL (0.60-1.30); GLOMERULAR FILTR. RATE CALC > 60 mL/min (>60); GLUCOSE,RANDOM 107 mg/dL (70-110); POTASSIUM 3.8 mmol/L (3.5-5.1); SODIUM SERUM 137 mmol/L (136-145); UREA NITROGEN, BLOOD 11 mg/dL (7-18)
[2021-08-31 03:42] LABS: ALANINE AMINOTRANSFERASE 26 U/L (12-78); ALBUMIN 2.6 g/dL (3.4-5.0); ALKALINE PHOSPHATASE 93 U/L (46-116); ASPARTATE AMINOTRANSFERASE 27 U/L (15-37); BILIRUBIN,TOTAL 0.4 mg/dL (0.1-1.0); TOTAL PROTEIN, SERUM 6.2 g/dL (6.4-8.2)
[2021-08-31 03:43] LABS: INR 1.1 (0.9-1.1); PROTHROMBIN TIME 11.2 SEC (9.4-11.6)
[2021-08-31] MEDS ORDERED: 0.9% SODIUM CHLORIDE 10 ML SYRINGE IVP PRN (04:00)
[2021-08-31] MEDS ORDERED: ONDANSETRON HCL 4 MG/2 ML VIAL IVP PRN (04:00)
[2021-08-31] MEDS ORDERED: ACETAMINOPHEN 325 MG TABLET PO PRN (04:00)
[2021-08-31] MEDS ORDERED: CLOPIDOGREL BISULFATE 75 MG TABLET PO ONE (04:45)
[2021-08-31] MEDS ORDERED: ASPIRIN 325 MG TABLET PO ONE (04:45)
[2021-08-31 06:02] LABS: COVID AG,FIA SOURCE NASOPHARYNGEAL
[2021-08-31] MEDS ORDERED: HYDROCODONE/ACETAMINOPHEN 5-325 MG TABLET PO PRN (07:00)
[2021-08-31] MEDS ORDERED: BISACODYL 10 MG RECTAL RECTAL SUPPOSITORY PR PRN (07:00)
[2021-08-31] MEDS ORDERED: MAGNESIUM HYDROXIDE SUSPENSION 30 ML UDCUP PO PRN (07:00)
[2021-08-31] MEDS ORDERED: ZOLPIDEM TARTRATE 5 MG TABLET PO PRN (07:00)
[2021-08-31 08:57] VITALS: BP 154/87
[2021-08-31] MEDS: ATORVASTATIN CALCIUM 40 MG TABLET PO SCH (09:45)
[2021-08-31] MEDS: PANTOPRAZOLE SODIUM 40 MG DR TABLET PO SCH (09:45)
[2021-08-31] MEDS: ASPIRIN 81 MG CHEWABLE TABLET PO SCH (09:45)
[2021-08-31] MEDS: DOCUSATE SODIUM 100 MG CAPSULE PO SCH ×2 (09:45→20:16)
[2021-08-31] MEDS: LOSARTAN POTASSIUM 50 MG TABLET PO SCH (09:45)
[2021-08-31] MEDS: ROFLUMILAST 500 MCG TABLET PO SCH (09:46)
[2021-08-31] MEDS: HEPARIN SODIUM,PORCINE 5,000 UNITS/ML VIAL SQ SCH ×2 (09:46→16:39)
[2021-08-31] MEDS: OXYGEN THERAPY IH SCH ×2 (09:46→19:40)
[2021-08-31] MEDS ORDERED: ALBUTEROL SULFATE 5 MG/ML 20 ML NEB SOLN [BULK] NEB ONE (15:00)
[2021-08-31] MEDS ORDERED: IPRATROPIUM BROMIDE 0.5 MG/2.5 ML NEB SOLUTION NEB ONE (15:00)
[2021-08-31 15:08] LABS: ABG BASE EXCESS 3.2 mmol/L (-2.0-3.0); ABG CARBOXYHEMOGLOBIN 0.2 % (0.0-1.5); ABG HCO3 27.1 mmol/L (22.0-26.0); ABG METHEMOGLOBIN 0.1 % (0.0-1.5); ABG OXYGEN CONTENT 11.2 mL/dL (15.0-23.0); ABG OXYGEN SATURATION 88.4 % (95.0-98.0); ABG OXYHEMOGLOBIN 88.1 % (94.0-100.0); ABG PCO2 36 mmHg (35-45); ABG PH 7.491 (7.35-7.450); PO2, ARTERIAL BG 56.1 mmHg (79.0-87.0); SOURCE, BLOOD GAS ARTERIAL; TEMPERATURE, FAHRENHEIT, BG 98.6 FAHREN (96.0-98.6)
[2021-08-31 15:10] LABS: SITE, BLOOD GAS RT RADIAL
[2021-08-31 15:11] LABS: O2 DEVICE,BLOOD GAS CANNULA (ROOM AIR)
[2021-08-31 18:28] LABS: BASOPHILS % (AUTO) 0.3 % (0.0-2.0); EOSINOPHILS % (AUTO) 0 % (1.0-6.0); HEMATOCRIT 23.9 % (41-53); HEMOGLOBIN 7.8 g/dL (13.5-17.5); LYMPHOCYTES # (AUTO) 0.2 K/uL (1.0-4.8); LYMPHOCYTES % (AUTO) 1.3 % (22.0-44.0); MEAN CORPUSCULAR HEMOGLOBIN 29.8 pg (26.0-34.0); MEAN CORPUSCULAR HGB CONC 32.6 G/dL (31.0-37.0); MEAN CORPUSCULAR VOLUME 92 fL (80-100); MONOCYTES % (AUTO) 7.3 % (2.0-9.0); NEUTROPHILS # (AUTO) 12.7 K/uL (1.8-7.7); PLATELET COUNT (AUTO) 286 K/uL (150-450); RED BLOOD CELL COUNT(AUTO) 2.61 MIL/uL (4.50-5.90); RED CELL DISTRIBUTION WIDTH 20.7 % (11.5-14.5)
[2021-08-31 18:30] LABS: NEUTROPHILS % (AUTO) 91.1 % (40.0-70.0)
[2021-08-31 18:42] LABS: ALANINE AMINOTRANSFERASE 25 U/L (12-78); ALBUMIN 2.4 g/dL (3.4-5.0); ALKALINE PHOSPHATASE 91 U/L (46-116); ANION GAP 11 mmol/L (8-16); ASPARTATE AMINOTRANSFERASE 29 U/L (15-37); BILIRUBIN,TOTAL 0.5 mg/dL (0.1-1.0); CALCIUM, TOTAL 8.5 mg/dL (8.8-10.5); CARBON DIOXIDE 28 mmol/L (22-29); CHLORIDE 102 mmol/L (98-107); CREATININE 0.74 mg/dL (0.60-1.30); GLOMERULAR FILTR. RATE CALC > 60 mL/min (>60); GLUCOSE,RANDOM 185 mg/dL (70-110); SODIUM SERUM 141 mmol/L (136-145); TOTAL PROTEIN, SERUM 5.8 g/dL (6.4-8.2); UREA NITROGEN, BLOOD 9 mg/dL (7-18)
[2021-08-31 18:43] LABS: TROPONIN I < 0.02 ng/mL (0.00-0.05)
[2021-08-31 18:45] LABS: POTASSIUM 2.5 mmol/L (3.5-5.1)
[2021-08-31 18:47] LABS: LACTIC ACID 3.4 mmol/L (0.4-2.0)
[2021-08-31 18:54] LABS: AMMONIA < 10 umol/L (11-32)
[2021-08-31] MEDS ORDERED: POTASSIUM CHL 10 MEQ/WATER 50 ML IV PRN (19:15)
[2021-08-31] MEDS ORDERED: POTASSIUM CHLORIDE 20 MEQ ER TABLET PO PRN (19:15)
[2021-08-31] MEDS ORDERED: SODIUM CHLORIDE 0.9% 500 ML IV ONE (19:15)
[2021-08-31 19:16] LABS: ABG BASE EXCESS 3.3 mmol/L (-2.0-3.0); ABG CARBOXYHEMOGLOBIN 0.2 % (0.0-1.5); ABG HCO3 27.2 mmol/L (22.0-26.0); ABG METHEMOGLOBIN 0.2 % (0.0-1.5); ABG OXYGEN CONTENT 10.5 mL/dL (15.0-23.0); ABG OXYGEN SATURATION 86.4 % (95.0-98.0); ABG OXYHEMOGLOBIN 86.1 % (94.0-100.0); ABG PCO2 35 mmHg (35-45); ABG PH 7.501 (7.35-7.450); ABG TOTAL HEMOGLOBIN 8.6 G/dL (12.0-18.0); PO2, ARTERIAL BG 52.1 mmHg (79.0-87.0); SITE, BLOOD GAS RT RADIAL; SOURCE, BLOOD GAS ARTERIAL; TEMPERATURE, FAHRENHEIT, BG 98.6 FAHREN (96.0-98.6)
[2021-08-31 19:31] LABS: APPEARANCE,URINE CLEAR (CLEAR); BILIRUBIN,URINE NEGATIVE (NEGATIVE); GLUCOSE, URINE (UA) NEGATIVE (NEGATIVE); KETONES,URINE NEGATIVE (NEGATIVE); LEUKOCYTE ESTERASE ,URINE NEGATIVE (NEGATIVE); NITRATE,URINE NEGATIVE (NEGATIVE); OCCULT BLOOD,URINE NEGATIVE (NEGATIVE); PH,URINE 7.5 (5.0-8.0); PROTEIN,URINE NEGATIVE (NEGATIVE); UROBILINOGEN,URINE 0.2 mg/dL (<=1.0)
[2021-08-31 19:34] LABS: BACTERIA,URINE None Seen /HPF (None Seen); RBC,URINE None Seen /HPF (0-2); WBC,URINE None Seen /HPF (0-5)
[2021-08-31 19:37] LABS: AMPHET/METH SCREEN,URINE NEGATIVE (NEGATIVE); BARBITURATE SCREEN, URINE NEGATIVE (NEGATIVE); BENZODIAZEPINES SCREEN,URINE NEGATIVE (NEGATIVE); CANNABINOID SCREEN,URINE NEGATIVE (NEGATIVE); COCAINE SCREEN,URINE NEGATIVE (NEGATIVE); METHADONE SCREEN, URINE NEGATIVE (NEGATIVE); OPIATE SCREEN,URINE POSITIVE (NEGATIVE)
[2021-08-31 19:40] LABS: PHENCYCLIDINE SCREEN,URINE NEGATIVE (NEGATIVE)
[2021-08-31] MEDS: POTASSIUM CHL 10 MEQ/WATER 50 ML IV PRN ×4 (19:45→22:41)
[2021-08-31] MEDS: MethylPREDNISolone SOD SUCC 125 MG/2 ML VIAL IVP SCH ×2 (20:12→23:03)
[2021-08-31] MEDS: ONDANSETRON HCL 4 MG/2 ML VIAL IVP PRN ×2 (20:53→21:00)
[2021-08-31] MEDS: MORPHINE SULFATE 2 MG/ML SYRINGE IVP PRN ×2 (20:53→21:00)
[2021-08-31] MEDS: ALBUTEROL SULFATE HFA 90 MCG/PUFF 8 GM INHALER IH PRN (20:53)
[2021-08-31] MEDS: BUDESONIDE 180 MCG/INH INHALER [120] IH SCH (22:17)
[2021-09-01 00:58] LABS: ANION GAP 5 mmol/L (8-16); CALCIUM, TOTAL 8.3 mg/dL (8.8-10.5); CARBON DIOXIDE 30 mmol/L (22-29); CHLORIDE 104 mmol/L (98-107); CHOL/HDL RATIO 2.2 (4.2-7.3); CHOLESTEROL 123 mg/dL (131-200); CREATININE 0.59 mg/dL (0.60-1.30); GLOMERULAR FILTR. RATE CALC > 60 mL/min (>60); GLUCOSE,RANDOM 163 mg/dL (70-110); HDL CHOLESTEROL 56 mg/dL (40-60); LDL CHOL (CALC.) 55 mg/dL (0-130); POTASSIUM 3.8 mmol/L (3.5-5.1); SODIUM SERUM 139 mmol/L (136-145); THYROID STIMULATING HORMONE 0.72 uIU/mL (0.36-3.74); TRIGLYCERIDES 59 mg/dL (15-150); UREA NITROGEN, BLOOD 9 mg/dL (7-18)
[2021-09-01] MEDS: ONDANSETRON HCL 4 MG/2 ML VIAL IVP PRN (04:43)
[2021-09-01] MEDS: MORPHINE SULFATE 2 MG/ML SYRINGE IVP PRN (04:43)
[2021-09-01] MEDS: OXYGEN THERAPY IH SCH ×2 (07:41→20:21)
[2021-09-01] MEDS: ASPIRIN 81 MG CHEWABLE TABLET PO SCH (08:27)
[2021-09-01] MEDS: MethylPREDNISolone SOD SUCC 125 MG/2 ML VIAL IVP SCH ×3 (08:27→23:47)
[2021-09-01] MEDS: DOCUSATE SODIUM 100 MG CAPSULE PO SCH ×2 (08:28→20:22)
[2021-09-01] MEDS: PANTOPRAZOLE SODIUM 40 MG DR TABLET PO SCH (08:28)
[2021-09-01] MEDS: LOSARTAN POTASSIUM 50 MG TABLET PO SCH (09:05)
[2021-09-01] MEDS: ROFLUMILAST 500 MCG TABLET PO SCH (09:05)
[2021-09-01] MEDS: ATORVASTATIN CALCIUM 40 MG TABLET PO SCH (09:05)
[2021-09-01] MEDS: BUDESONIDE 180 MCG/INH INHALER [120] IH SCH ×2 (09:44→20:22)
[2021-09-01 10:03] LABS: BASOPHILS % (AUTO) 0.1 % (0.0-2.0); EOSINOPHILS % (AUTO) 0 % (1.0-6.0); HEMOGLOBIN 7.9 g/dL (13.5-17.5); LYMPHOCYTES # (AUTO) 0.2 K/uL (1.0-4.8); LYMPHOCYTES % (AUTO) 2.8 % (22.0-44.0); MEAN CORPUSCULAR HEMOGLOBIN 30.4 pg (26.0-34.0); MEAN CORPUSCULAR HGB CONC 32.8 G/dL (31.0-37.0); MEAN CORPUSCULAR VOLUME 93 fL (80-100); MONOCYTES # (AUTO) 0.7 K/uL (0.1-1.0); MONOCYTES % (AUTO) 7.3 % (2.0-9.0); PLATELET COUNT (AUTO) 312 K/uL (150-450); RED BLOOD CELL COUNT(AUTO) 2.59 MIL/uL (4.50-5.90); RED CELL DISTRIBUTION WIDTH 21.3 % (11.5-14.5)
[2021-09-01 10:04] LABS: NEUTROPHILS % (AUTO) 89.8 % (40.0-70.0)
[2021-09-01 11:25] LABS: ANION GAP 7 mmol/L (8-16); CALCIUM, TOTAL 9.1 mg/dL (8.8-10.5); CARBON DIOXIDE 31 mmol/L (22-29); CHLORIDE 105 mmol/L (98-107); CREATININE 0.81 mg/dL (0.60-1.30); GLOMERULAR FILTR. RATE CALC > 60 mL/min (>60); GLUCOSE,RANDOM 110 mg/dL (70-110); POTASSIUM 5.2 mmol/L (3.5-5.1); SODIUM SERUM 143 mmol/L (136-145); UREA NITROGEN, BLOOD 9 mg/dL (7-18)
[2021-09-01 11:28] LABS: ALANINE AMINOTRANSFERASE 27 U/L (12-78); ALBUMIN 2.8 g/dL (3.4-5.0); ALKALINE PHOSPHATASE 100 U/L (46-116); ASPARTATE AMINOTRANSFERASE 30 U/L (15-37); BILIRUBIN,TOTAL 0.5 mg/dL (0.1-1.0); TOTAL PROTEIN, SERUM 6.8 g/dL (6.4-8.2)
[2021-09-01 11:32] LABS: LACTIC ACID 2.8 mmol/L (0.4-2.0)
[2021-09-01] MEDS ORDERED: MAGNESIUM SULFATE 2 GM/WATER 50 ML IV PRN (12:00)
[2021-09-01] MEDS ORDERED: SODIUM POLYSTYRENE SULFONATE 15 GM/60 ML SUSPENSION BOTTLE PO ONE (13:00)
[2021-09-01 16:35] VITALS: BP 149/70
[2021-09-01] MEDS ORDERED: INFLUENZA VIRUS VACCINE QVS 2021-22 (6MO+)/PF 60 MCG/0.5 ML SYRINGE IM. ONE (19:00)
[2021-09-01 20:30] VITALS: BP 130/75
[2021-09-01] MEDS: ALBUTEROL SULFATE HFA 90 MCG/PUFF 8 GM INHALER IH PRN (22:56)
[2021-09-01 23:45] VITALS: BP 134/72
[2021-09-02 03:48] VITALS: BP 126/74
[2021-09-02 06:59] LABS: BASOPHILS % (AUTO) 0.3 % (0.0-2.0); EOSINOPHILS % (AUTO) 0 % (1.0-6.0); HEMATOCRIT 29.5 % (41-53); HEMOGLOBIN 9.5 g/dL (13.5-17.5); LYMPHOCYTES # (AUTO) 0.3 K/uL (1.0-4.8); LYMPHOCYTES % (AUTO) 2.1 % (22.0-44.0); MEAN CORPUSCULAR HGB CONC 32.3 G/dL (31.0-37.0); MEAN CORPUSCULAR VOLUME 93 fL (80-100); MONOCYTES # (AUTO) 0.6 K/uL (0.1-1.0); MONOCYTES % (AUTO) 4.6 % (2.0-9.0); NEUTROPHILS # (AUTO) 11.8 K/uL (1.8-7.7); PLATELET COUNT (AUTO) 449 K/uL (150-450); RED BLOOD CELL COUNT(AUTO) 3.17 MIL/uL (4.50-5.90); RED CELL DISTRIBUTION WIDTH 21.1 % (11.5-14.5)
[2021-09-02 07:17] LABS: ANION GAP 12 mmol/L (8-16); CALCIUM, TOTAL 8.9 mg/dL (8.8-10.5); CARBON DIOXIDE 27 mmol/L (22-29); CHLORIDE 103 mmol/L (98-107); CREATININE 0.64 mg/dL (0.60-1.30); GLOMERULAR FILTR. RATE CALC > 60 mL/min (>60); GLUCOSE,RANDOM 115 mg/dL (70-110); POTASSIUM 3.7 mmol/L (3.5-5.1); SODIUM SERUM 142 mmol/L (136-145); UREA NITROGEN, BLOOD 21 mg/dL (7-18)
[2021-09-02 08:10] VITALS: BP 119/69
[2021-09-02] MEDS: ATORVASTATIN CALCIUM 40 MG TABLET PO SCH (09:19)
[2021-09-02] MEDS: LOSARTAN POTASSIUM 50 MG TABLET PO SCH (09:20)
[2021-09-02] MEDS: PANTOPRAZOLE SODIUM 40 MG DR TABLET PO SCH (09:20)
[2021-09-02] MEDS: ROFLUMILAST 500 MCG TABLET PO SCH (09:21)
[2021-09-02] MEDS: DOCUSATE SODIUM 100 MG CAPSULE PO SCH ×2 (09:21→20:48)
[2021-09-02] MEDS: ASPIRIN 81 MG CHEWABLE TABLET PO SCH (09:21)
[2021-09-02] MEDS: BUDESONIDE 180 MCG/INH INHALER [120] IH SCH ×2 (09:23→20:49)
[2021-09-02] MEDS: MethylPREDNISolone SOD SUCC 125 MG/2 ML VIAL IVP SCH ×2 (09:28→15:54)
[2021-09-02] MEDS: OXYGEN THERAPY IH SCH ×2 (09:28→20:48)
[2021-09-02 12:02] VITALS: BP 122/66
[2021-09-02 16:06] VITALS: BP 123/71
[2021-09-02 20:43] VITALS: BP 142/74
[2021-09-02] MEDS: ACETAMINOPHEN 325 MG TABLET PO PRN (20:50)
[2021-09-03] VITALS (7 sets, daily range): BP systolic 129–142; BP diastolic 67–77
[2021-09-03] MEDS: MethylPREDNISolone SOD SUCC 125 MG/2 ML VIAL IVP SCH ×2 (00:14→08:35)
[2021-09-03] MEDS: ALBUTEROL SULFATE HFA 90 MCG/PUFF 8 GM INHALER IH PRN ×3 (00:14→21:07)
[2021-09-03] MEDS: DOCUSATE SODIUM 100 MG CAPSULE PO SCH ×2 (08:32→21:06)
[2021-09-03] MEDS: ATORVASTATIN CALCIUM 40 MG TABLET PO SCH (08:32)
[2021-09-03] MEDS: ROFLUMILAST 500 MCG TABLET PO SCH (08:33)
[2021-09-03] MEDS: PANTOPRAZOLE SODIUM 40 MG DR TABLET PO SCH (08:33)
[2021-09-03] MEDS: LOSARTAN POTASSIUM 50 MG TABLET PO SCH (08:33)
[2021-09-03] MEDS: BUDESONIDE 180 MCG/INH INHALER [120] IH SCH ×2 (08:35→21:07)
[2021-09-03] MEDS: OXYGEN THERAPY IH SCH ×2 (08:40→20:52)
[2021-09-03] MEDS ORDERED: GADOTERATE MEGLUMINE 10 MMOL/20 ML VIAL IVP ONE (08:59)
[2021-09-03] MEDS: ASPIRIN 81 MG CHEWABLE TABLET PO SCH (09:00)
[2021-09-03 10:43] LABS: BASOPHILS % (AUTO) 0.2 % (0.0-2.0); EOSINOPHILS % (AUTO) 0 % (1.0-6.0); HEMATOCRIT 26.8 % (41-53); HEMOGLOBIN 8.9 g/dL (13.5-17.5); LYMPHOCYTES # (AUTO) 0.1 K/uL (1.0-4.8); LYMPHOCYTES % (AUTO) 0.9 % (22.0-44.0); MEAN CORPUSCULAR VOLUME 91 fL (80-100); MONOCYTES # (AUTO) 0.9 K/uL (0.1-1.0); MONOCYTES % (AUTO) 6.4 % (2.0-9.0); NEUTROPHILS # (AUTO) 12.9 K/uL (1.8-7.7); PLATELET COUNT (AUTO) 456 K/uL (150-450); RED BLOOD CELL COUNT(AUTO) 2.96 MIL/uL (4.50-5.90); RED CELL DISTRIBUTION WIDTH 20.8 % (11.5-14.5)
[2021-09-03 10:46] LABS: NEUTROPHILS % (AUTO) 92.5 % (40.0-70.0)
[2021-09-03 11:04] LABS: ANION GAP 13 mmol/L (8-16); CALCIUM, TOTAL 8.5 mg/dL (8.8-10.5); CARBON DIOXIDE 28 mmol/L (22-29); CHLORIDE 102 mmol/L (98-107); CREATININE 0.72 mg/dL (0.60-1.30); GLOMERULAR FILTR. RATE CALC > 60 mL/min (>60); GLUCOSE,RANDOM 112 mg/dL (70-110); SODIUM SERUM 143 mmol/L (136-145); UREA NITROGEN, BLOOD 29 mg/dL (7-18)
[2021-09-03 12:35] LABS: SPECIMENTYPE,BODY FLUID PLEURAL
[2021-09-03 13:55] LABS: APPEARANCE,SPUN,BODY FLUID CLEAR (CLEAR); APPEARANCE,UNSPUN,BODY FLUID CLOUDY (CLEAR); BASOPHILS,BODY FLUID 0 %; COLOR,BODY FLUID YELLOW (LT YELLOW); EOSINOPHILS,BF (ANAL) 0 %; LYMPHOCYTES,BODY FLUID 100 %; MONOCYTES,BODY FLUID 0 %; NEUTROPHILS,BODY FLUID 0 %; PH, BODY FLUID 9; TOTAL VOLUME,BODY FLUID 3 mL; WBC, BODY FLUID 6 /cu. mm.
[2021-09-03] MEDS: ACETAMINOPHEN 325 MG TABLET PO PRN (21:06)
[2021-09-04] VITALS (7 sets, daily range): BP systolic 124–145; BP diastolic 63–82
[2021-09-04] MEDS: ATORVASTATIN CALCIUM 40 MG TABLET PO SCH (09:05)
[2021-09-04] MEDS: DOCUSATE SODIUM 100 MG CAPSULE PO SCH ×2 (09:05→20:22)
[2021-09-04] MEDS: ROFLUMILAST 500 MCG TABLET PO SCH (09:05)
[2021-09-04] MEDS: LOSARTAN POTASSIUM 50 MG TABLET PO SCH (09:06)
[2021-09-04] MEDS: ASPIRIN 81 MG CHEWABLE TABLET PO SCH (09:06)
[2021-09-04] MEDS: PANTOPRAZOLE SODIUM 40 MG DR TABLET PO SCH (09:06)
[2021-09-04] MEDS: PredniSONE 20 MG TABLET PO SCH (09:06)
[2021-09-04] MEDS: BUDESONIDE 180 MCG/INH INHALER [120] IH SCH ×2 (09:12→20:22)
[2021-09-04] MEDS: OXYGEN THERAPY IH SCH ×2 (09:12→20:18)
[2021-09-04] MEDS: ACETAMINOPHEN 325 MG TABLET PO PRN (20:22)
[2021-09-04] MEDS: ALBUTEROL SULFATE HFA 90 MCG/PUFF 8 GM INHALER IH PRN (20:23)
[2021-09-05 03:45] VITALS: BP 135/58
[2021-09-05] MEDS: ALBUTEROL SULFATE HFA 90 MCG/PUFF 8 GM INHALER IH PRN (06:37)
[2021-09-05 07:43] VITALS: BP 104/64
[2021-09-05] MEDS: OXYGEN THERAPY IH SCH (08:56)
[2021-09-05] MEDS: BUDESONIDE 180 MCG/INH INHALER [120] IH SCH (09:14)
[2021-09-05] MEDS: ASPIRIN 81 MG CHEWABLE TABLET PO SCH (09:14)
[2021-09-05] MEDS: DOCUSATE SODIUM 100 MG CAPSULE PO SCH (09:14)
[2021-09-05] MEDS: PredniSONE 20 MG TABLET PO SCH (09:15)
[2021-09-05] MEDS: ATORVASTATIN CALCIUM 40 MG TABLET PO SCH (09:15)
[2021-09-05] MEDS: LOSARTAN POTASSIUM 50 MG TABLET PO SCH (09:15)
[2021-09-05] MEDS: PANTOPRAZOLE SODIUM 40 MG DR TABLET PO SCH (09:15)
[2021-09-05] MEDS: ROFLUMILAST 500 MCG TABLET PO SCH (09:15)
[2021-09-05 11:38] VITALS: BP 105/56
[2021-09-05 13:44] LABS: ANION GAP 6 mmol/L (8-16); CALCIUM, TOTAL 8.3 mg/dL (8.8-10.5); CARBON DIOXIDE 32 mmol/L (22-29); CHLORIDE 104 mmol/L (98-107); GLOMERULAR FILTR. RATE CALC > 60 mL/min (>60); GLUCOSE,RANDOM 141 mg/dL (70-110); SODIUM SERUM 142 mmol/L (136-145); UREA NITROGEN, BLOOD 15 mg/dL (7-18)
[2021-09-05] MEDS ORDERED: POTASSIUM CHLORIDE 20 MEQ ER TABLET PO ONE (14:30)
== END 2021-09-05 14:35 | disposition home health service (06) | DRG 69 ==
LOC: EMS 02:12 → 5S 06:38 → ICUN 09:15 → 5S 09-01 15:36
PROVIDERS: ADMIT Internal Medicine; ATTEND Internal Medicine
PROC: 5A0935A Assistance with Respiratory Ventilation, Less than 24 Consecutive Hours, High Flow/Velocity Cannula (ICD-10-PCS; 2021-08-31)
PROC: 5A09357 Assistance with Respiratory Ventilation, Less than 24 Consecutive Hours, Continuous Positive Airway Pressure (ICD-10-PCS; 2021-08-31)
PROC: 0W9B3ZZ Drainage of Left Pleural Cavity, Percutaneous Approach (ICD-10-PCS; principal; 2021-09-03)
DX: G45.9 Transient cerebral ischemic attack, unspecified (principal); J96.21 Acute and chronic respiratory failure with hypoxia; E43 Unspecified severe protein-calorie malnutrition; G93.41 Metabolic encephalopathy; R65.11 Systemic inflammatory response syndrome (SIRS) of non-infectious origin with acute organ dysfunction; J44.1 Chronic obstructive pulmonary disease with (acute) exacerbation; J90 Pleural effusion, not elsewhere classified; I69.354 Hemiplegia and hemiparesis following cerebral infarction affecting left non-dominant side; M40.209 Unspecified kyphosis, site unspecified; E78.5 Hyperlipidemia, unspecified; M81.0 Age-related osteoporosis without current pathological fracture; I50.9 Heart failure, unspecified; I11.0 Hypertensive heart disease with heart failure; Z20.822 Contact with and (suspected) exposure to COVID-19; K21.9 Gastro-esophageal reflux disease without esophagitis; Z85.118 Personal history of other malignant neoplasm of bronchus and lung; Z99.81 Dependence on supplemental oxygen; Z68.21 Body mass index [BMI] 21.0-21.9, adult
CPT/HCPCS: 32555; 36600; 70496; 70498; 71045; 71250; 76604; 76942; 80048; 80053; 80061; 81001; 82140; 82805; 83605; 83735; 83880; 83986; 84100; 84132; 84443; 84484; 85025; 85379; 85610; 85730; 86850; 86900; 86901; 87070; 87205; 89051; 92610; 93005; 93306; 93880; 93970; 94644; 94660; 97116; 97162; 97166; 97530; 97535; 99291; G0378; J1644; J2270; J2405; J2930; J3475; J3480; J3535; J7040; J7050; Q9967; 36415-L1; 36415-TC; 70450; 70450-TC; J7611